=== PATIENT | female | born 1965 | race Caucasian/White ===

== ENCOUNTER 2020-08-06 18:41 | Emergency (ER) | payer BC ==
[2020-08-06] MEDS ORDERED: SUCCINYLCHOLINE 20 MG/ML (10 ML) IV ONE (18:42)
[2020-08-06] MEDS ORDERED: ETOMIDATE 20 MG/10 ML VIAL IV ONE (18:42)
--- OUTSIDE RECORDS SUMMARY | 2020-08-06 18:43 | XMS REPORT | Clinical Summary ---
:1965 Author Organization [facility] Address [address] [place] [address] Care Team Providers Name Role Phone Asked, No Pcp Primary Care Provider Unavailable Allergies Active Allergy Reactions Severity Noted Date Comments Penicillins Hives High 12/18/2016 Sulfa (Sulfonamide Antibiotics) Hives High 7 Medications Medication Sig Dispensed Refills Start Date End Date Status desvenlafaxine (PRISTIQ) 100 MG 24 0 10/03 Active hr tablet VENTOLIN HFA 90 mcg/actuation 0 09/26/2016 Active inhaler SYMBICORT 160-4.5 mcg/actuation 0 12/07/19 17 Active inhaler diclofenac (VOLTAREN) 1 % gel 0 12/10/2016 Active esomeprazole (NexIUM) 40 MG capsule 0 11/12 Active HYDROcodone-acetaminophen (NORCO) 0 2016 Active 10-325 mg per tablet LINZESS 290 mcg capsule 0 12/06/2016 Active SAXENDA 3 mg/0.5 mL (18 mg/3 mL) pen 0 Active injector methocarbamol (ROBAXIN) 750 MG 0 7 Active tablet RELISTOR 12 mg/0.6 mL syringe 0 12/06/2016 Active MYRBETRIQ 50 mg tablet extended 0 12/07/19 17 Active release 24 hr montelukast (SINGULAIR) 10 mg tablet 0 02/2017 Active nystatin (MYCOSTATIN) 100,000 0 12/06/2016 Active unit/gram ointment OXYCONTIN 30 mg tablet,oral 0 12/16/2016 Active only,ext.rel.12 hr ER tablet LYRICA 150 mg capsule 0 12/06/2016 Active rOPINIRole (REQUIP) 2 MG tablet 0 10/29/19 17 Active topiramate (TOPAMAX) 25 MG tablet 0 2016 Active Active Problems No known active problems Surgical History Surgery Date Site/Laterality Comments COLONOSCOPY 07/14/1996 - 07/13/1997 UPPER GASTROINTESTINAL 07/14/1996 - ENDOSCOPY 07/13/1997 EYE SURGERY 07/14/2001 - 07/13/2002 JOINT REPLACEMENT 07/14/2014 - Left hip 07/13/2015 ORTHOPEDIC SURGERY 07/14/2011 - Appx 14 07/13/2012 TONSILLECTOMY 07/14/1969 - 07/13/1970 TUBAL LIGATION 07/14/2007 - Endometrial abla tion 07/13/2008 Medical History Medical History Date Comments Allergic 1969 Anxiety 2007 Arthritis 2015 Asthma 1997 Depression 2007 GERD (gastroesophageal reflux disease) 1993 Headache 1997 Neuromuscular disorder (HCC) Obesity Family History Medical History Relation Name Comments Cancer Maternal Grandfather Luke Gil Colon cance r Arthritis Mother Keeley Fam Asthma Mother Keeley Fam Diabetes Mother Keeley Fam Hearing loss Mother Keeley Fam Arthritis Paternal Grandfather Lance eDanr Heart disease Paternal Grandfather Lance Deanr Early Paternal Grandmother Kyleigh Deanr Heart disea se Heart disease Paternal Grandmother Kyleigh Deanr Relation Name Status Comments Maternal Grandfather Luke Gil Mother Keeley Fam Paternal Grandfather Lance Deanr Paternal Grandmother Kyleigh Deanr Social History Tobacco Use Types Packs/Day Years Used Date Never Smoker Alcohol Use Drinks/Week oz/Week Comments Yes 1 Glasses of wine Once a month Sex Assigned at Date Recorded Not on file Last Filed Vital Signs Not on file Plan of Treatment Health Maintenance Due Date Last Done Comments COVID-19 VACCINE (1 of 2) 1983 CERVICAL CANCER SCREENING 01/22/1988 BREAST CANCER SCREENING 2017 COLONOSCOPY SCREENING 2017 SHINGLES VACCINES (#1) 2017 INFLUENZA VACCINE 02/12/2020 Results Not on fileafter 08/06/2019 Advance Directives For more information, please contact: [phone] Type Date Recorded Patient Power Crane Operator Explanati on Advance Directives, Living Will 12/30/2016 10:34 AM and Medical Power of Collision Estimator
--- OUTSIDE RECORDS SUMMARY | 2020-08-06 18:44 | XMS REPORT | Continuity of Care Document ---
:1965 Author Organization [facility] t Address [address] [place] [address] Care Team Providers Name Role Phone Asked, Pcp Primary Care Physician Unavailable Radiology Attending Clinician Unavailable Doctor Unassigned, Name Attending Clinician Unavailable Only, Test Attending Clinician Unavailable Problems This patient has no known problems. Allergies, Adverse Reactions, Alerts Allergy Allergy Status Severity Reaction(s) Onset Inactive Treating Comm ents Source Name Type Date Date Clinician Penicill [facility]i [facility] adverse 00:00: st reaction 00 s to drug Sulfa Propensi Active [facility] [place] (Sulfona ty to 12-18 [facility] mide adverse 00:00: st Antibiot reaction 00 ics) s to drug Sulfacet Adverse Active Info Not [facility] Reaction Available [facility] penicill Adverse Active Info Not [facility] Reaction Available [facility] adhesive Adverse Active Info Not [facility] tape Reaction Available [facility] Family History Family Member Diagnosis Comments Start Date Stop Date Source Maternal grandfather Cancer [place] [facility] Natural mother Arthritis [place] [facility] Natural mother Asthma [place] [facility] Natural mother Diabetes [place] [facility] Natural mother Hearing loss [place] [facility] Paternal grandfather Arthritis [place] [facility] Paternal grandfather Heart disease H marylu Reis Paternal grandmother Early Emily stodoroteo Reis Paternal grandmother Heart disease H marylu Reis Social History Social Habit Start Date Stop Date Quantity Comments Source Sex Assigned At [place] [facility] Alcohol intake 2017-02-19 2017-02-19 Current drinker [facility] 00:00:00 00:00:00 of alcohol (finding) Alcohol Comment 2016-12-18 2016-12-18 Once a month [facility] 00:00:00 00:00:00 Smoking Status Start Date Stop Date Source Never smoker [facility] Medications Ordered Filled Start Stop Current Ordering Indication Dosage Frequency Signature Comments Components Source Medication Medication Date Date Medication? Clinician (SIG) Name Name HYDROcodone Yes Milad n -acetaminop 6-05 Methodi hen (NORCO) 00:00: st 10-325 mg 00 per tablet OXYCONTIN Yes Dez 30 mg 6-05 [facility] tablet,oral 00:00: st only,ext.re 00 l.12 hr ER tablet diclofenac Yes Dez (VOLTAREN) 5-30 [facility] 1 % gel 00:00: st 00 SYMBICORT Yes Dez 160-4.5 5-26 [facility] mcg/actuati 00:00: st on inhaler 00 esomeprazol Yes Milad sadler e (NexIUM) 5-26 [facility] 40 MG 00:00: st capsule 00 LINZESS 290 Yes Milad n mcg capsule 5-26 [facility] 00:00: st 00 SAXENDA 3 Yes Dez mg/0.5 mL 5-26 [facility] (18 mg/3 00:00: st mL) pen 00 injector methocarbam Yes Milad sadler ol 5-26 [facility] (ROBAXIN) 00:00: st 750 MG 00 tablet RELISTOR 12 Yes Milad n mg/0.6 mL 5-26 [facility] syringe 00:00: st 00 MYRBETRIQ Yes Dez 50 mg 5-26 [facility] tablet 00:00: st extended 00 release 24 hr nystatin Yes Dez (MYCOSTATIN 5-26 [facility] ) 100,000 00:00: st unit/gram 00 ointment LYRICA 150 Yes Dze mg capsule 5-26 [facility] 00:00: st 00 topiramate Yes Dez (TOPAMAX) 5-26 [facility] 25 MG 00:00: st tablet 00 rOPINIRole Yes Dez (REQUIP) 2 4-17 [facility] MG tablet 00:00: st 00 montelukast Yes Milad sadler (SINGULAIR) 4-08 [facility] 10 mg 00:00: st tablet 00 desvenlafax Yes Milad sadler ine 3-23 [facility] (PRISTIQ) 00:00: st 100 MG 24 00 hr tablet VENTOLIN Yes [facility] HFA 90 3-16 [facility] mcg/actuati 00:00: st on inhaler 00 Victoza Victoza Yes Carlos A as [facility] Ventolin Ventolin Yes Carlos A [address] [facility] HFA HFA Rachel needed [facility] Voltaren Voltmichellen Yes Carlos A as [facility] Nystatin Nystatin Yes Carlos A [address] [facility] applicatio [facility] Yes Carlos A [address] [facility] Sodium Sodium Rachel [facility] Zolpidem Zolpidem Yes Carlos A (Schedule [facility] Tartrate Tartrate Rachel IV Drug) Michael es - TAKE 1.5 Memoria TABLETS BY l MOUTH AT Outpati BEDTIME ent Clinics [facility]oFine Yes Carlos A as [facility] Lyrica Lyrica Yes Carlos A [address] [facility] [facility] Integra Integra Yes Carlos A [address] [facility] between [facility] Phentermine Phentermine Yes Carlos A [address] HCl HCl Rachel [facility] Dexilant Dexilant Yes Carlos A [address] [facility] Methocarbam Methocarbam Yes Carlos A [address] ol ol Rachel [facility] Pantoprazol Pantoprazol Yes Carlos A TAKE ONE [facility] e Sodium e Sodium Rachel (1) [facility] - TABLET(S) Memoria BY MOUTH l TWICE A Outpati DAY. ent Clinics Symbicort Symbicort Yes Carlos A [address] Jardiance Jardiance Yes Carlos A [address] [facility] Myrbetriq Myrbetriq Yes Carlos A [address] [facility] Topiramate Topiramate Yes Carlos A [address] [facility] Hydrocodone Hydrocodone Yes Carlos A (Schedule [facility] -Acetaminop -Acetaminop Rachel II Drug) [facility] - hen hen TAKE 1 Memoria TABLET BY l MOUTH 2 TO Outpati 3 TIMES A ent DAY Clinics NEEDED FOR PAIN Triamcinolo Triamcinolo Yes Carlos A [address] [facility] ne & ne & Rachel [facility]ics Escitalopra Escitalopra Yes Carlos A [address] m Oxalate m Oxalate Rachel [facility] Xtampza ER Xtampza ER Yes Carlos A not [facility] defined [facility] Ciprofloxac Ciprofloxac Yes Carlos A not [facility] in HCl in HCl Rachel defined [facility] Ondansetron Ondansetron Yes Carlos A not [facility] Rachel defined [facility] Procedures This patient has no known procedures. Plan of Care Planned Activity Planned Date Details Comments Source Future Scheduled 2020-02-12 INFLUENZA VACCINE [place] [facility] Test 00:00:00 [code = INFLUENZA VACCINE] Future Scheduled 2017 BREAST CANCER [facility]odist Test 00:00:00 SCREENING [code = BREAST CANCER SCREENING] Future Scheduled 2017 COLONOSCOPY SCREENING [facility] [place] [facility] Test 00:00:00 [code = COLONOSCOPY SCREENING] Future Scheduled 2017 SHINGLES VACCINES [place] [facility] 00:00:00 (#1) [code = SHINGLES VACCINES (#1)] Future Scheduled 1988-01-22 Screening for [facility]ist Test 00:00:00 malignant neoplasm of cervix (procedure) [code = 293259147] Future Scheduled 1983 COVID-19 VACCINE (1 [place] [facility] Test 00:00:00 of 2) [code = COVID-19 VACCINE (1 of 2)] Encounters Start End Encounter Admission Attending Care Care Encounter Source Date/Time Date/Time Type Type Clinicians Facility Department ID 2020-07-05 2020-07-05 [facility] Radiology [facility] [id number] 13:06:53 23:59:00 Encounter [place] [id number] [place] [id number] [place] [id number] 2020-07-05 2020-07-05 [facility] Radiology [facility] [id number] 13:06:18 23:59:00 Encounter [place] [id number] [place] [id number] [place] [id number] 2020-07-05 2020-07-05 [facility] Radiology [facility] [id number] 13:05:40 13:05:40 Encounter [place] [id number] [place] [id number] [place] [id number] 2020-06-16 2020-06-16 Orders Doctor SOBEIDA [id number] 00:00:00 00:00:00 Only Unassigned, NERY [id number] [facility] [id number] 2020-05-31 2020-05-31 [facility] Radiology [facility] [id number] 07:53:28 23:59:00 Encounter [place] [id number] [place] [id number] [place] [id number] 2020-04-03 2020-04-03 Laboratory Only, Adc [facility] [id number] 09:21:14 09:36:14 Only Test [place] [id number] [place] [id number] [place] [id number] 2020-04-03 2020-04-03 Orders Doctor SOBEIDA [id number] 00:00:00 00:00:00 Only Unassigned, NEYR [id number] [facility] [id number] 2020-01-04 2020-01-04 [facility] [id number] [address] 14:49:00 14:49:00 [facility] 2019-12-01 2019-12-01 Outpatient Amalia Small [id number] [facility] 15:03:00 15:03:00 [facility] 2019-11-18 2019-11-18 Outpatient Amalia Small [id number] 10:00:00 10:00:00 [facility] 2019-09-02 2019-09-02 Outpatient Amalia Small [id number] 10:30:00 10:30:00 t [facility] Results This patient has no known results.
--- OUTSIDE RECORDS SUMMARY | 2020-08-06 18:44 | XMS REPORT | Summary of Care ---
:1965 Author Organization [facility] Address [address] [place] [address] Care Team Providers Name Role Phone Joel Marrero Primary Care Provider Encounter Details Date Type Department Care Team Description 06/16/2020 Orders Only [facility] Doctor Unassigned, No [address] [facility] [place] [place] [address] [address] [place] [address] Allergies Not on Filedocumented as of this encounter (statuses as of 06/21/2020) Medications Not on filedocumented as of this encounter (statuses as of 06/21/2020) Active Problems Not on filedocumented as of this encounter (statuses as of 06/21/2020) Social History Tobacco Use Types Packs/Day Years Used Date Never Assessed Sex Assigned at Date Recorded Not on file COVID-19 Exposure Response Date Recorded In the last month, have you been in contact with No / Unsure 06/16/2020 9:43 AM BUSINESS SUPPORT LIAISON someone who was confirmed or suspected to have Coronavirus / COVID-19? documented as of this encounter Last Filed Vital Signs Not on filedocumented in this encounter Plan of Treatment Date Type Specialty Care Team Description 06/21/2020 Appointment Radiology Radiology [address] [place] [address] 07/05/2020 Appointment Radiology Radiology [address] [place] [address] Health Maintenance Due Date Last Done Comments Depression Screening 1979 DTaP,Tdap,and Td Vaccines (1 1986 - Tdap) PAP SMEAR 01/22/1988 COLON CANCER SCREENING 2017 ANNUAL FIT/FOBT COLON CANCER SCREENING FIT 2017 DNA EVERY 3 YEARS COLON CANCER SCREENING 2017 SIGMOIDOSCOPY EVERY 5 YEARS COLONOSCOPY 2017 Colorectal Cancer Screening 2017 Zoster Recombinant Vaccine 2017 (SHINGRIX) (1 of 2) Breast Cancer Screening 06/07/2020 06/07/2019, 05/20/2018 (MAMMOGRAM) INFLUENZA VACCINE Completed 03/14/2020, 02/11/2018, 03/18/2017, Additional history exists PNEUMOCOCCAL 0-64 YEARS Aged Out No longe r eligible COMBINED SERIES based on patient 's age to complete this topic documented as of this encounter Procedures Procedure Name Priority Date/Time Associated Diagnosis Comme nts AUTHORIZATION FOR RELEASE Routine 06/16/2020 12:01 AM OF PHI BUSINESS SUPPORT LIAISON documented in this encounter Results Not on filedocumented in this encounter Insurance Payer Benefit Plan / Subscriber ID Effective Dates Phone Addre ss Type Group BCBS OF HIM BCBS BLUE [id number] 2017-Melissa [phone] [address] HMO [facility] t 7 [id number] [place] [address] documented as of this encounter
--- OUTSIDE RECORDS SUMMARY | 2020-08-06 18:44 | XMS REPORT | Summary of Care ---
:1965 Author Organization [facility] Address [address] [place] [address] Care Team Providers Name Role Phone Joel Marrero Primary Care Provider Reason for Referral Radiology Services (Routine) Status Reason Specialty Diagnoses / Referred By Referred To Procedures Contact Contact Closed Diagnostic Diagnoses Encounter for screening mammogram for breast cancer [place] [facility] Procedures BI SCREENING TOMOSYNTHESIS BILATERAL BI SCREENING MAMMOGRAM BILATERAL [address] [place] [address] Reason for Visit Radiology Services (Routine) Status Reason Specialty Diagnoses / Referred By Referred To Procedures Contact Contact Closed Diagnostic Diagnoses Encounter for screening mammogram for breast cancer [place], Joel Radiology Procedures BI SCREENING TOMOSYNTHESIS BILATERAL BI SCREENING MAMMOGRAM BILATERAL [address] [place] [address] Encounter Details Date Type Department Care Team Description 07/05/2020 Hospital Encounter [facility] Radiolog y Arrived [facility] [address] [place] [address] Allergies No Known Allergiesdocumented as of this encounter (statuses as of 07/06/2020) Medications Not on filedocumented as of this encounter (statuses as of 07/06/2020) Active Problems Not on filedocumented as of this encounter (statuses as of 07/06/2020) Social History Tobacco Use Types Packs/Day Years Used Date Never Assessed Sex Assigned at Date Recorded Not on file COVID-19 Exposure Response Date Recorded In the last month, have you been in contact with No / Unsure 07/05/2020 1:04 PM CERTIFIED MIDWIFE someone who was confirmed or suspected to have Coronavirus / COVID-19? documented as of this encounter Last Filed Vital Signs Not on filedocumented in this encounter Plan of Treatment Health Maintenance Due Date [...] encounter Procedures Procedure Name Priority Date/Time Associated Comments Diagnosis BI SCREENING Routine 07/05/2020 1:34 Encounter for Results fo r this TOMOSYNTHESIS PM CERTIFIED MIDWIFE screening mammogram procedu re are in BILATERAL for breast cancer the result s section. NOTICE OF PRIVACY Routine 07/05/2020 1:04 PRACTICES PM CERTIFIED MIDWIFE CONSENT/REFUSAL FOR Routine 07/05/2020 1:04 DIAGNOSIS AND PM CERTIFIED MIDWIFE TREATMENT ASSIGNMENT OF BENEFITS Routine 07/05/2020 1:04 PM CERTIFIED MIDWIFE documented in this encounter Results BI SCREENING TOMOSYNTHESIS BILATERAL (07/05/2020 1:34 PM CERTIFIED MIDWIFE) Specimen Narrative Performed At This result has an attachment that is no t available. Examination: PACS BI SCREENING TOMOSYNTHESIS BILATERAL History: Patient is 55 year old and is seen for: Encounter fo r screening mammogram for breast cancer. Computer-aided detection (CAD) utilized. Comparisons: 06/07/2019 BI SCREENING TOMOSYNTHESIS MARCELLA ATERAL and 05/20/2018 BI SCREENING TOMOSYNTHESIS BILATERAL Findings: The breasts have scattered areas of fibroglandular den sity. There is no evidence of suspicious masses, calcifications, or othe r abnormal findings. Impression: No signs of malignancy. Recommendation: Annual mammographic follow-up - Bilateral BI-RADS Category: Both 2 - Benign Performing Organization Address City/State/Zipcode Phone Number PACS documented in this encounter Visit Diagnoses Diagnosis Encounter for screening mammogram for br east cancer documented in this encounter Insurance Payer Benefit Plan / Subscriber ID Effective Dates Phone Addre ss Type Group BCBS OF HIM BCBS BLUE [id number] 2017-Melissa [phone] [place] [address] [place] HMO [facility] t 7 [id number] [place] [address] documented as of this encounter
--- OUTSIDE RECORDS SUMMARY | 2020-08-06 18:44 | XMS REPORT | Summary of Care ---
:1965 Author Organization [facility] Address [address] [place] [address] Care Team Providers Name Role Phone Joel Marrero Primary Care Provider Reason for Referral Radiology Services (Routine) Status Reason Specialty Diagnoses / Referred By Referred To Procedures Contact Contact Closed Diagnostic Diagnoses Epigastric pain [place], Joel Radiology Procedures US ABDOMEN LIMITED [address] [place] [address] Reason for Visit Radiology Services (Routine) Status Reason Specialty Diagnoses / Referred By Referred To Procedures Contact Contact Closed Diagnostic Diagnoses Epigastric pain [place], Joel Radiology Procedures US ABDOMEN LIMITED [address] [address] [place] [address] Encounter Details Date Type Department Care Team Description 05/31/2020 Hospital Encounter [facility] Radiolog y Arrived [place] [facility] [address] [place] [address] [place] [address] Allergies Not on Filedocumented as of this encounter (statuses as of 06/01/2020) Medications Not on filedocumented as of this encounter (statuses as of 06/01/2020) Active Problems Not on filedocumented as of this encounter (statuses as of 06/01/2020) Social History Tobacco Use Types Packs/Day Years Used Date Never Assessed Sex Assigned at Date Recorded Not on file documented as of this encounter Last Filed [...] Name Priority Date/Time Associated Diagnosis Comme nts US ABDOMEN LIMITED Routine 05/31/2020 8:26 AM Epigastric pain Results for this ESTHETICIAN/OWNER procedure are i n the results section. documented in this encounter Results US ABDOMEN LIMITED (05/31/2020 8:26 AM ESTHETICIAN/OWNER) Specimen Narrative Performed At HISTORY: Epigastric pain. PACS/VR/DOSE COMPARISON: None TECHNIQUE: Liver as well as gallbladder were evaluated in multiple planes without and with color imaging. FINDINGS: Liver is approximately 15.7 cm and showed normal homogeneous echotexture. Hepatic/portal venous systems appear christensen nt with hepatopedal portal venous flow confirmed. No fluid is seen in the right upper abdomen. No dilatation of the intrahepatic biliar y ducts. Gallbladder appears to be of normal size and shape with no significant thickening of the sepulveda. No gallstones d etected. Biliary sludge was detected, hilar, in the dependent portion of the gallb ladder lumen. Common hepatic duct measured approximately 4.6 mm. Most of the pancreas was obscured due to intestinal ga s. Small portion of the mid body of the pancreas was visuali zed and appeared normal. CONCLUSIONS: 1. Normal ultrasound study of liver. 2. No gallstones. Biliary sludge accumulation in the d ependent portion of the gallbladder lumen could be sign of c hronic acalculous cholecystitis/dysfunction in gallbladder. Procedure Note [facility], Radiant Results Inft User - 2019 8:31 AM ESTHETICIAN/OWNER HISTORY: Epigastric pain. COMPARISON: None TECHNIQUE: Liver as well as gallbladder were evaluated in multiple planes without and with color imaging. FINDINGS: Liver is approximately 15.7 cm and showed normal homogeneous echotexture. Hepatic/portal venous syste ms appear patent with hepatopedal portal venous flow confirmed. No fluid i s seen in the right upper abdomen. No dilatation of the intrahepatic biliar y ducts. Gallbladder appears to be of normal size and shape with no significant thickening of the sepulveda. No gallstones d etected. Biliary sludge was detected, hilar, in the dependent portio n of the gallbladder lumen. Common hepatic duct measured approximately 4.6 mm. Most of the pancreas was obscured due to intestinal gas. Small portion of the mid body of the pancreas was visuali zed and appeared normal. CONCLUSIONS: 1. Normal ultrasound study of liver. 2. No gallstones. Biliary sludge accumul ation in the dependent portion of the gallbladder lumen could be sign of c hronic acalculous cholecystitis/dysfunction in gallbladder . Performing Organization Address City/State/Zipcode Phone Number PACS/VR/DOSE documented in this encounter Visit Diagnoses Diagnosis Epigastric pain Abdominal pain, epigastric documented in this encounter Insurance Payer Benefit Plan / Subscriber ID Effective Dates Phone Addre ss Type Group BCBS OF HIM BCBS BLUE [id number] 2017-Melissa [phone] [address] [facility] [id number] [place] [address] documented as of this encounter
--- OUTSIDE RECORDS SUMMARY | 2020-08-06 18:44 | XMS REPORT | Summary of Care ---
:1965 Author Organization [facility] Address [address] [place] [id number] Care Team Providers Name Role Phone Joel Marrero Primary Care Provider Reason for Referral Radiology Services (Routine) Status Reason Specialty Diagnoses / Referred By Referred To Procedures Contact Contact Closed Diagnostic Diagnoses Abdominal pain, unspecified abdominal location ABDOMINAL PAIN Toupin, Joel Radiology Procedures NM HEPATOBILIARY W INTERVENTION MI HEPATOBIL SYST IMAG INC GB W/PHARMA INTERVENJ MI HEPATOBILIARY SYST IMAGING INCLUDING GALLBLADDER NM HEPATOBILIARY W INTERVENTION [address] [place] [address] Reason for Visit Radiology Services (Routine) Status Reason Specialty Diagnoses / Referred By Referred To Procedures Contact Contact Closed Diagnostic Diagnoses Abdominal pain, unspecified abdominal location ABDOMINAL PAIN Toupin, Joel Radiology Procedures NM HEPATOBILIARY W INTERVENTION MI HEPATOBIL SYST IMAG INC GB W/PHARMA INTERVENJ MI HEPATOBILIARY SYST IMAGING INCLUDING GALLBLADDER NM HEPATOBILIARY W INTERVENTION [address] [place] [address] Encounter Details Date Type Department Care Team Description 07/05/2020 Hospital Encounter [facility] Radiolog y Arrived [address] [place] [address] [address] [place] [address] Allergies No Known Allergiesdocumented as [...] with No / Unsure 07/05/2020 1:04 PM HARMONIC ANALYST someone who was confirmed or suspected to [...] Procedure Name Priority Date/Time Associated Comments Diagnosis NM HEPATOBILIARY W Routine 07/05/2020 4:39 Abdominal pain, Re sults for this INTERVENTION PM HARMONIC ANALYST unspecified procedure are i n abdominal location the resul ts section. documented in this encounter Results NM HEPATOBILIARY W INTERVENTION (07/05/2020 4:39 PM HARMONIC ANALYST) Specimen Impressions Performed At PACS/VR/DOSE Normal HIDA scan. There is no evidence for cholecystitis o r biliary obstruction. The gallbladder ejection fraction is 82 %. Narrative Performed At This result has an attachment that is no t available. HIDA SCAN PACS/VR/DOSE CLINICAL HISTORY: 55-year-old female with right uppe r quadrant pain. COMPARISON: Abdominal ultrasound 05/31/2020 TECHNIQUE AND FINDINGS: After IV injection of 8 mCi technetium 99m mebrofenin sequential images of the abdomen were obtained for one hour. Initial images show clearance from blood pool and norm al uptake by liver parenchyma. The gallbladder is visualized by 8 minutes, it is kelly gated with normal volume. The common bile duct is patent with visualization of t he duodenum by 10 minutes. The patient received IV 1.5 mcg CCK and dynamic imagin g continued for 30 minutes. The gallbladder ejection fraction is 82%, (normal >35% ). Procedure Note [facility], Radiant Results Inft User - 2019 5:49 PM HARMONIC ANALYST HIDA SCAN CLINICAL HISTORY: 55-year-old female wi th right upper quadrant pain. COMPARISON: Abdominal ultrasound 020 TECHNIQUE AND FINDINGS: After IV injection of 8 mCi technetium 9 9m mebrofenin sequential images of the abdomen were obtained for one hour. Initial images show clearance from blood pool and normal uptake by liver parenchyma. The gallbladder is visualized by 8 minut es, it is elongated with normal volume. The common bile duct is patent with visu alization of the duodenum by 10 minutes. The patient received IV 1.5 mcg CCK and dynamic imaging continued for 30 minutes. The gallbladder ejection fraction is 82% , (normal >35%). IMPRESSION Normal HIDA scan. There is no evidence for cholecystitis o r biliary obstruction. The gallbladder ejection fraction is 82 %. Performing Organization Address City/State/Zipcode Phone Number PACS/VR/DOSE documented in this encounter Visit Diagnoses Diagnosis Abdominal pain, unspecified abdominal lo cation documented in this encounter Administered Medications Medication Order MAR Action Action Date Dose Rate Site tc 99m-mebrofenin injection Given 07/05/2020 3:05 PM 10 millicu elpidio 10 millicurie HARMONIC ANALYST 10 millicurie, Intravenous, ONCE, 1 dose, Fri07/05/20 at 1500, Routine documented in this encounter Insurance Payer Benefit Plan / Subscriber ID Effective Dates Phone Addre ss Type Group BCBS OF [place] BCBS BLUE [id number] 2017-Melissa [phone] [address] [place] [facility] [id number] [place] [address] documented as of this encounter
--- OUTSIDE RECORDS SUMMARY | 2020-08-06 18:44 | XMS REPORT | Summary of Care ---
:1965 Author Organization [address] [address] Care Team Providers Name Role Phone Joel Marrero Primary Care Provider Reason for Visit Radiology Services (Routine) Status Reason Specialty Diagnoses / Referred By Referred To Procedures Contact Contact Closed Diagnostic Diagnoses Abdominal pain, unspecified abdominal location ABDOMINAL PAIN Joel Marrero Radiology Procedures NM HEPATOBILIARY W INTERVENTION ID HEPATOBIL SYST IMAG INC GB W/PHARMA INTERVENJ ID HEPATOBILIARY SYST IMAGING INCLUDING GALLBLADDER NM HEPATOBILIARY W INTERVENTION [address] [address] Encounter Details Date Type Department Care Team Description 07/05/2020 Hospital Encounter [facility] Radiolog y Arrived [address] Medicine [place], [place] [id number] [place] [id number] Allergies No Known Allergiesdocumented as of [...] with No / Unsure 07/05/2020 1:04 PM RECRUITING SCHEDULER someone who was confirmed or suspected to [...] pain, Re sults for this INTERVENTION PM RECRUITING SCHEDULER unspecified procedure are i n abdominal location the resul ts section. documented in this encounter Results Not on filedocumented in this encounter Administered Medications Medication Order MAR Action Action Date Dose Rate Site sincalide (KINEVAC) injection 2 Given 07/05/2020 2:09 PM RECRUITING SCHEDULER 2 mcg mcg 2 mcg, IV Push, ONCE, 1 dose, Fri07/05/20 at 1415, Routine documented in this encounter Insurance Payer Benefit Plan / Subscriber ID Effective Dates Phone Addre ss Type Group BCBS OF HIM BCBS BLUE [id number] 2017-Melissa [phone] [address] H[facility] t [id number] [place] [address] documented as of this encounter
--- NOTE | 2020-08-06 19:21 | EDPHYS ---
Physician Documentation [facility] Name: Cherie Michael Age: 55 yrs Sex: Female : 1965 Arrival Date: 08/06/2020 Time: 18:46 Bed 18 Private MD: ED Physician Stephan Nava HPI: 08/06 19:08 This 55 yrs old Female presents to ER via EMS with complaints of Abdominal rn Pain. 19:08 Pt brought in by EMS for abdominal pain, immediately upon dropping patient off, patient rn became unresponsive and large emesis, lost pulse, not able to get story other than abd pain from EMS and prior pain medication at home.. Historical: - Allergies: 19:30 PENICILLINS; lp1 - Home Meds: 19:30 Unable to obtain [Active]; lp1 - PMHx: 19:30 Chronic pain; Depression; lp1 - PSHx: 19:30 Unable to obtain; lp1 - Unable to obtain history due to: comatose state. ROS: 19:08 Unable to obtain ROS due to comatose state. rn Exam: 19:08 Constitutional: GCS 3, unresponsive, pale, covered in emesis Head/Face: rn Normocephalic, atraumatic. Eyes: Pupils nonreactive Cardiovascular: No spont pulse or cardiac activity Respiratory: coarse bilateral breath sounds with bagging post intubation Abdomen/GI: distended abdomen Skin: Pale cool skin Neuro: GCS 3 Procedures: 19:05 CPR: See CPR flow sheet. Initial patient assessment: unresponsive, agonal respirations, rn pulses present w/ compressions, The presenting cardiac rhythm is PEA. Intubation: Ventilated with 100% NRB prior to procedure. O2 saturation prior to procedure was 63 %. Intubated orally using # 4 Rick blade with 7.0 mm ETT. Successful on second attempt. Tube secured with ETT scruggs at right side of mouth measured 24 cm at teeth. Placement verified by CO2 detector with (+) color change, auscultating bilateral breath sounds, O2 saturation after procedure was 91 %. Patient tolerated well. MDM: 19:05 Patient medically screened. rn 19:05 ED course: Called to room after EMS arrival, apparently patient brought in for abd rn pain, when dropped off in room began with large emesis, lost consciousness, GCS 3, no pulse. Intubated after suctioning and approx 1 L emesis, non-bloody. . 19:08 ED course: Pt with large amount of emesis, suction unable to keep up during intubation, rn blind intubation attempted with bougie, when unsuccessful, passes 6.0 tube into esophagus then blind intubation with 7.0 tube. + color change and easy to bag with bilateral coarse breath sounds. . 19:18 Differential diagnosis: obstruction, vagal bradycardic arrest, visceral rupture. Data rn reviewed: vital signs, nurses notes. 19:21 ED course: Called family twice, unable to contact family to update. Left a message.. rn 08/06 19:30 Order name: Glucose, Ancillary Testing EDMS Administered Medications: 18:58 Drug: EPINEPHrine 0.1mg/mL 1:10,000 1 mg Route: IVP; Site: right antecubital; lp1 19:18 Follow up: Response: No change in condition lp1 19:00 Drug: NARcan 2 mg Route: IVP; Site: right antecubital; lp1 19:18 Follow up: Response: No change in condition lp1 19:01 Drug: EPINEPHrine 0.1mg/mL 1:10,000 1 mg Route: IVP; Site: right antecubital; lp1 19:18 Follow up: Response: No change in condition lp1 19:02 Drug: Sodium Bicarbonate 1 amp Route: IVP; Site: right antecubital; lp1 19:18 Follow up: Response: No change in condition lp1 19:04 Drug: EPINEPHrine 0.1mg/mL 1:10,000 1 mg Route: IVP; Site: right antecubital; lp1 19:18 Follow up: Response: No change in condition lp1 19:07 Drug: EPINEPHrine 0.1mg/mL 1:10,000 1 mg Route: IVP; Site: right antecubital; lp1 19:18 Follow up: Response: No change in condition lp1 19:10 Drug: EPINEPHrine 0.1mg/mL 1:10,000 1 mg Route: IVP; Site: right antecubital; lp1 19:18 Follow up: Response: No change in condition lp1 19:14 Drug: EPINEPHrine 0.1mg/mL 1:10,000 1 mg Route: IVP; Site: right antecubital; lp1 19:18 Follow up: Response: No change in condition lp1 Disposition: 19:18 . rn 19:19 . rn Disposition: Patient pronounced on 08/06/20 19:18 by Stephan Nava. Impression: Cardiac arrest. - Released to Home. Signatures: Dispatcher [employer] EDMS Stephan Nava MD MD rn Pena, Laura, RN RN lp1 Talita Garcia RN RN ea Corrections: (The following items were deleted from the chart) 22:36 19:20 08/06/2020 19:20 Patient pronounced on 08/06/2020 at 19:18 by Stephan Nava. david Impression: Cardiac arrest. Released to Home. rn
--- NOTE | 2020-08-06 19:21 | ER ---
Nurse's Notes [facility] Name: Cherie Michael Age: 55 yrs Sex: Female : 1965 Arrival Date: 08/06/2020 Time: 18:46 Bed 18 [facility] MD: Diagnosis: Cardiac arrest Presentation: 08/06 18:47 Chief complaint: EMS states: pt c/o abd pain X 12 hours, +nausea , no vomiting or iw diarrhea, pt has hx of chronic pain , took her oxycodone and hydrocodone this morning and had no relief. Coronavirus screen: At this time, the client does not indicate any symptoms associated with coronavirus-19. Ebola Screen: Patient negative for fever greater than or equal to 101.5 degrees Fahrenheit, and additional compatible Ebola Virus Disease symptoms Patient denies exposure to infectious person. Patient denies travel to an Ebola-affected area in the 21 days before illness onset. No symptoms or risks identified at this time. Risk Assessment: Do you want to hurt yourself or someone else? Patient reports no desire to harm self or others. 18:47 Method Of Arrival: EMS: [facility] iw 18:49 Onset of symptoms was August 06, 2020. iw 18:53 Acuity: MONICA 1 iw 18:54 Compressions began. jd3 Historical: - Allergies: 19:30 PENICILLINS; lp1 - Home Meds: 19:30 Unable to obtain [Active]; lp1 - PMHx: 19:30 Chronic pain; Depression; lp1 - PSHx: 19:30 Unable to obtain; lp1 - Unable to obtain history due to: comatose state. Assessment: 18:49 General: Appears uncomfortable, ill, obese, Behavior is agitated, anxious. Pain: iw Complains of pain in abdomen. Neuro: Level of Consciousness is awake, obeys commands, Oriented to person, place, time. GI: Abdomen is distended. Derm: Skin is intact, Skin is dusky. 18:52 Reassessment: pt was moved from EMS stretcher onto ER bed, pt began to vomit clear iw liquid, profusely, pt then became unresponsive, Dr. Nava was called to bed 18, [employer] called at 1854. 18:54 CPR assessment: unresponsive, pupils fixed \T\ dilated, agonal respirations, Ambu jd3 ventilation, cyanotic, pale, CPR started. 18:54 Cardiac rhythm is asystole. jd3 19:15 Reassessment: attempted to call pt's (Michael Michael, ) left message. iw 19:22 Reassessment: attempt to call again, no answer. iw 19:42 Reassessment: called back, he is en route to ER, is currently outside of [facility] and won't be here until 9:30, Redd LealSap Portal Architect notified. 19:48 Reassessment: [facility] notified [id number]. jd3 21:30 Reassessment: PD at facility. ea 22:34 Reassessment: Undertaker at facility to transport pt body to [place] at [facility]. ea ED Course: 18:46 Patient arrived in ED. iw 18:55 Maintain EMS IV. Dressing intact. Site clean \T\ dry. Gauge \T\ site: 20g to R AC. lp 1 19:00 Assisted provider with intubation using 7.0 mm ETT via oral route. ET tube secured at lp1 24cm at the lips. Set up intubation tray. Intubated by Stephan Nava MD Placement verified by CO2 detector w/ + color change, auscultating bilateral breath sounds. 19:05 Stephan Nava MD is Attending Physician. rn 19:10 NGT: inserted 18 Fr. other Orally verified placement of air over stomach, verified lp1 return of gastric contents, Returned gastric contents. 19:17 Triage completed. iw 19:19 Stephan Nava MD is Pronouncing Provider. rn 19:30 Sharath Echols RN is Primary Nurse. jd3 Administered Medications: 18:58 Drug: EPINEPHrine 0.1mg/mL 1:10,000 1 mg Route: IVP; Site: right antecubital; lp1 19:18 Follow up: Response: No change in condition lp1 19:00 Drug: NARcan 2 mg Route: IVP; Site: right antecubital; lp1 19:18 Follow up: Response: No change in condition lp1 19:01 Drug: EPINEPHrine 0.1mg/mL 1:10,000 1 mg Route: IVP; Site: right antecubital; lp1 19:18 Follow up: Response: No change in condition lp1 19:02 Drug: Sodium Bicarbonate 1 amp Route: IVP; Site: right antecubital; lp1 19:18 Follow up: Response: No change in condition lp1 19:04 Drug: EPINEPHrine 0.1mg/mL 1:10,000 1 mg Route: IVP; Site: right antecubital; lp1 19:18 Follow up: Response: No change in condition lp1 19:07 Drug: EPINEPHrine 0.1mg/mL 1:10,000 1 mg Route: IVP; Site: right antecubital; lp1 19:18 Follow up: Response: No change in condition lp1 19:10 Drug: EPINEPHrine 0.1mg/mL 1:10,000 1 mg Route: IVP; Site: right antecubital; lp1 19:18 Follow up: Response: No change in condition lp1 19:14 Drug: EPINEPHrine 0.1mg/mL 1:10,000 1 mg Route: IVP; Site: right antecubital; lp1 19:18 Follow up: Response: No change in condition lp1 Outcome: 19:17 Patient : Pronounced by Stephan Nava MD jd3 19:17 Condition: 19:18 Outcome Patient jd3 22:36 Patient left the ED. ea Signatures: Sherry Zhu, RN Stephan Nuñez MD MD rn Pena, Laura RN SERJIO [facility] Talita Garcia RN RN ea Davies, Jonathon, RN RN jd3 Corrections: (The following items were deleted from the chart) 19:35 19:17 Outcome Patient jd3 jd3 19:36 19:36 Compressions began jd3 jd3 19:44 19:18 Outcome Patient jd3 jd3 20:10 18:54 CPR assessment: unresponsive, pupils fixed \T\ dilated, agonal respirations, Ambu jd3 ventilation, cyanotic, pale, jd3 20:11 18:54 CPR assessment: unresponsive, pupils fixed \T\ dilated, agonal respirations, Ambu jd3 ventilation, cyanotic, pale, jd3
== END 2020-08-06 22:36 | disposition expired ==
LOC: ER 18:41
PROC: 0BH17EZ Insertion of Endotracheal Airway into Trachea, Via Natural or Artificial Opening (ICD-10-PCS; principal; 2020-08-06)
DX: I46.9 Cardiac arrest, cause unspecified (principal); F32.9 Major depressive disorder, single episode, unspecified; Z88.0 Allergy status to penicillin
CPT/HCPCS: 82947; 31500; 96375; 96374; 92950; 99285; J0330